=== PATIENT | female | born 1955 | race Caucasian/White ===

== ENCOUNTER → 2016-07-12 | Outpatient (CLI) | payer OTHER ==
[~2016-07-12] MED LIST: ACET-24 PO; ASPEC81 PO; BUPR-79 PO; CETI10TA84 PO; CLB200 PO; ESOM20CA PO; LEVO125T5 PO; LRT5 PO; MELO15TA3 PO; ONDA8TAB6 PO; RXC5 PO; SYNUNK; TRAM-10 PO
[2016-07-12 13:29] LABS: THYROID STIMULATING HORMONE 0.188 uIu/ml (0.300-4.500)
== END | disposition home or self-care (01) ==
LOC: C.LAB 11:25
PROVIDERS: ATTEND Family Medicine
DX: E03.9 Hypothyroidism, unspecified (principal)

== ENCOUNTER 2016-09-24 07:17 | Inpatient (IN) | payer OTHER ==
[2016-08-14 14:58] VITALS: BMI 37.0
--- NOTE | 2016-08-14 15:25 | PAT Medication Instructions ---
Service Date Aug 14, 2016. Current Home Medication List Cetirizine (Zyrtec), 10 MG PO QAM PRN for prn Esomeprazole Magnesium (Nexium), 20 MG PO QAM Levothyroxine Sodium (Levothyroxine Sodium), 1 TAB PO QAM Meloxicam (Mobic), 15 MG PO QAM Tramadol (Ultram), 50 MG PO Q4H PRN for Pain Medication Instructions For Your Scheduled Surgery - Check with surgeon for instructions: Meloxicam (Mobic), 15 MG PO QAM - Hold the following medications the morning of surgery: Cetirizine (Zyrtec), 10 MG PO QAM PRN for prn - Take the following medications the morning of surgery with a sip of water: Tramadol (Ultram), 50 MG PO Q4H PRN for Pain (okay to take up to 4 hours prior to surgery if needed) Levothyroxine Sodium (Levothyroxine Sodium), 1 TAB PO QAM Esomeprazole Magnesium (Nexium), 20 MG PO QAM - Take the following medications as scheduled the night before surgery: Tramadol (Ultram), 50 MG PO Q4H PRN for Pain (if needed) Cetirizine (Zyrtec), 10 MG PO QAM PRN for prn (if needed) If you have any questions please call us at [phone] or [phone] or [phone]
--- NOTE | 2016-08-14 15:48 | DIAGNOSTIC IMAGING REPORT ---
CHEST 2 VIEWS ROUTINE HISTORY: Preop. COMPARISON: Chest 08/02/2009. FINDINGS: The lungs are clear. Cardiac silhouette is normal in size. No pleural effusions. No pneumothorax. Prior cholecystectomy. Mild S-shaped scoliosis of the thoracolumbar spine. IMPRESSION: No acute process. Electronically signed by: Luis Stoner M.D. 08/14/2016 3:47 PM Dictated Date/Time: 08/14/2016 3:44 PM
[2016-08-14 15:52] LABS: BASO % 0.2 %; BASO ABS # 0.01 K/uL (0-0.2); COMPLETE YES; EOS % 5.6 %; HEMATOCRIT 40.1 % (37-47); LYMPH % 26.1 %; LYMPH ABS # 1.53 K/uL (1.2-3.4); MEAN CELL VOLUME 90.1 fL (80-100); MEAN CORPUSCULAR HEMOGLOBIN 30.1 pg (25-34); MEAN CORPUSCULAR HGB CONC 33.4 g/dl (32-36); MEAN PLATELET VOLUME 11.1 fL (7.4-10.4); MONO % 6.5 %; NEUT % 61.6 %; PLATELET COUNT 198 K/uL (130-400); RED BLOOD COUNT 4.45 M/uL (4.2-5.4); WHITE BLOOD COUNT 5.86 K/uL (4.8-10.8)
[2016-08-14 15:54] LABS: URINE APPEARANCE CLEAR (CLEAR); URINE BILIRUBIN NEG (NEG); URINE COLOR YELLOW; URINE NITRITE NEG (NEG); UROBILINOGEN NEG (NEG); ZZUR CULT IF INDIC CLEAN CATCH NO
[2016-08-14 15:55] LABS: MANUAL MICROSCOPIC REQUIRED? NO; REVIEW REQ? NO
[2016-08-14 15:57] LABS: PARTIAL THROMBOPLASTIN RATIO 1.1; PROTHROMBIN TIME (PATIENT) 10.6 SECONDS (9.0-12.0)
[2016-08-14 16:02] LABS: BUN/CREATININE RATIO 15.5 (10-20); CALCIUM 8.9 mg/dl (8.5-10.1); CREATININE 0.92 mg/dl (0.60-1.20); POTASSIUM 4.2 mmol/L (3.5-5.1)
[2016-09-17 11:41] VITALS: Ht 157.5 cm; Wt 92.1 kg
--- NOTE | 2016-09-21 17:53 | History and Physical ---
History & Physical Date Sep 21, 2016. Chief Complaint RIGHT KNEE PAIN History of Present Illness The patient is a 61 year old female with complaints of right knee pain for years , cant do adls. Life has become pretty miserable. She has tried nsaids, PT, bracing with no relief. Shes ready for Right Knee replacement. Past Medical/Surgical History Left knee replacement, ,cholecystectomy Allergies Coded Allergies: No Known Allergies (Unverified , 08/14/16) Home Medications Scheduled Esomeprazole Magnesium (Nexium), 20 MG PO QAM Levothyroxine Sodium (Levothyroxine Sodium), 1 TAB PO QAM Meloxicam (Mobic), 15 MG PO QAM Scheduled PRN Cetirizine (Zyrtec), 10 MG PO QAM PRN for prn Tramadol (Ultram), 50 MG PO Q4H PRN for Pain Physical Examination Skin: warm/dry, no rash Eyes: normal inspection, EOMI, sclerae normal ENT: normal ENT inspection, pharynx normal Head: normocephalic, atraumatic Neck: supple, no adenopathy, trachea midline Respiratory/Chest: lungs clear, normal breath sounds, no respiratory distress Cardiovascular: regular rate, rhythm, no edema, no murmur Abdomen / GI: normal bowel sounds, non tender Back: normal inspection Neurologic/Psych: no motor/sensory deficits, alert, normal reflexes, oriented x 3 Addiitonal Comments: painful rom right knee, crepitation right knee. Diagnosis DJD RIGHT KNEE Plan of Treatment RIGHT TKA, ADMIT TO [facility], HOME PT
[2016-09-24] VITALS (7 sets, daily range): BP systolic 101–138; BP diastolic 66–100; PULSE 57–88; TEMP 36.4–36.9; O2SAT 96–100
[~2016-09-24] VITALS: Ht 157.5 cm; Wt 92.1 kg
[~2016-09-24 07:17] MED LIST changes: -ACET-24 PO; +ACETAMINOPHEN 500 MG TAB PO SCH; -ASPEC81 PO; -BUPR-79 PO; +CEFAZOLIN 2000 MG/60 ML D5W 60 ML IV SCH; -CLB200 PO; +CeleBREX 200 MG CAP PO SCH; +DEXAMETHASONE 4 MG TAB PO SCH; +FAMOTIDINE 20 MG TAB PO SCH; +LACTATED RINGER'S 1000ML 1,000 ML IV SCH; +LACTATED RINGER'S 1000ML 500 ML IV ONE; +LEVO125T4 PO; -LEVO125T5 PO; -LRT5 PO; +METOCLOPRAMIDE HCL 10 MG TAB PO SCH; -ONDA8TAB6 PO; +ROPIVACAINE 5MG/ML 30 ML 150 MG, BUPIVACAINE/EPINEPHR 0.5% MPF 30 ML, KETOROLAC TROMETH... INFIL SCH; -RXC5 PO; -SYNUNK
[2016-09-24] MEDS ORDERED: MIDAZOLAM HCL 1 MG/ML 2ML VIAL ONE ×2 (07:35)
[2016-09-24] MEDS ORDERED: FENTANYL CITRATE INJ 50 MCG/1 ML 2 ML VIAL ONE (07:35)
[2016-09-24] MEDS ORDERED: BUPIVACAINE 0.25% 30 ML VIAL ONE (07:39)
[2016-09-24] MEDS ORDERED: BUPIVACAINE 0.5 % 5 MG/1 ML PF 10ML VIAL ONE (07:39)
--- NOTE | 2016-09-24 08:33 | History & Physical Bridge Note ---
H&P Re-Evaluation Bridge Note: I have examined the patient, reviewed the History & Physical and in the interval since the performance of the History & Physical I have noted the following changes of clinical significance: No changes noted
[2016-09-24] MEDS: TRANEXAMIC ACID INJ 1,000 MG in SODIUM CHLORIDE 0.9% 100ML 100 ML IV SCH ×2 (08:50→13:46)
[2016-09-24] MEDS ORDERED: ORTHO JOINT ANESTHETIC ONE (08:57)
[2016-09-24] MEDS ORDERED: POVIDONE-IODINE OP SOLN 30 ML BTL ONE (08:57)
[2016-09-24] MEDS ORDERED: BACITRACIN 50000 UNIT VIAL ONE (08:58)
[2016-09-24] MEDS ORDERED: HYDROmorphone INJ 2 MG/ML SYR/VIAL IV PRN (09:30)
[2016-09-24] MEDS ORDERED: ATROPINE SULFATE 0.1 MG/ML 5ML SYR IV PRN (09:30)
[2016-09-24] MEDS ORDERED: KETOROLAC TROMETHAMINE 30 MG/ML VIAL IV. PRN (09:30)
[2016-09-24] MEDS ORDERED: ONDANSETRON INJ 2 MG/ML 2 ML VIAL IV PRN ×2 (09:30→10:45)
[2016-09-24] MEDS ORDERED: PHENYLEPHRINE 100MCG/ML 5ML SYR IV PRN (09:30)
[2016-09-24] MEDS ORDERED: EpHEDrine SULFATE INJ 50 MG/ML AMP IV PRN (09:30)
[2016-09-24] MEDS ORDERED: PROPOFOL IV EMULSION 10 MG/ML 20 ML VIAL IV ONE ×2 (09:32→11:50)
[2016-09-24] MEDS ORDERED: BISACODYL 10 MG SUPP PR PRN (10:45)
[2016-09-24] MEDS ORDERED: ZOLPIDEM TARTRATE 5 MG TAB PO PRN (10:45)
[2016-09-24] MEDS ORDERED: MAGNESIUM HYDROXIDE SUSP 30 ML UDC PO PRN (10:45)
[2016-09-24] MEDS ORDERED: ALUMINUM/MAGNESIUM/SIMETH (MAALOX MAX) 30 ML UDC PO PRN (10:45)
--- NOTE | 2016-09-24 10:52 | OPERATIVE REPORT ---
DATE OF OPERATION: 09/24/2016 PREOPERATIVE DIAGNOSIS: Degenerative joint disease of the right knee. POSTOPERATIVE DIAGNOSIS: Same. PROCEDURES: Right total knee arthroplasty with the use of patient matched implants. SURGEON: Otf Gutierrez D.O. RELIABILITY ENGINEER: JERSEY Silverman certified. ANESTHESIA: Spinal. COMPLICATIONS: Zero. CONDITION: The patient tolerated the procedure well and transferred to recovery room in stable condition. IMPLANTS USED: [employer] II knee size 5 cemented femoral component, a size 3 tibial component, a size 11 PS insert and a size 32 All-Poly patella. INDICATIONS: Ms. Paz is a pleasant female who has unfortunately failed all forms of conservative measures. Therefore, she has decided to undergo elective surgical intervention. All risks and benefits of the surgery were discussed with the patient and the family in entirety. DESCRIPTION OF PROCEDURE: The patient was brought to the operating room and properly identified by myself, anesthesia, and staff. She was given a spinal anesthetic and placed on the operating table in the supine position. Tourniquets were applied to the right upper thigh. The leg was then prepped and draped in the usual sterile fashion. We made a standard midline approach over the patella and dissected down through the subcutaneous tissue to identify the capsule and performed a medial capsulotomy with the patella everted and the knee flexed. The patient-matched implant was then put onto the femur. The femur measured to be a size 5. This was then put into place. We made the appropriate cuts and then placed a retractor behind the proximal tibia to retract anteriorly. We then placed the patient-matched knee implant on the tibia. It measured to be a size 5. A size 5 guide was then put in place. We used the tibial punch then put the trial components into place. We had very good range of motion, excellent stability, and excellent patella tracking. We removed the trial components and irrigated the wound. We impacted the components in place using antibiotic cement. All excess cement was removed. We then irrigated the wound once more. We closed the capsule with 0 PDS suture, deep dermis with 2-0 Vicryl, and finally the skin with jono. A sterile dressing was applied. The patient was taken to the recovery room in stable condition. I attest to the content of the Intraoperative Record and any orders documented therein. Any exceptions are noted below. JACOB
--- NOTE | 2016-09-24 11:38 | Anesthesiology Progress Note ---
Anesthesia Post Op Note Date & Time Sep 24, 2016 at 11:37 Vital Signs Pain Intensity: 0 Vital Signs Past 12 Hours Date Time Temp Pulse Resp B/P (MAP) Pulse Ox O2 Delivery O2 Flow Rate FiO2 09/24/16 11:25 67 18 96/62 99 Mask 10 09/24/16 11:15 76 18 103/65 100 Mask 10 09/24/16 11:05 36.6 79 18 100/58 98 Mask 10 09/24/16 07:42 36.6 88 18 138/100 97 Room Air Notes Mental Status: alert / awake / arousable, participated in evaluation Pt Amnestic to Procedure: Yes Nausea / Vomiting: adequately controlled Pain: adequately controlled Airway Patency, RR, SpO2: stable & adequate BP & HR: stable & adequate Hydration State: stable & adequate Anesthetic Complications: no major complications apparent
[2016-09-24] MEDS ORDERED: PHENYLEPHRINE 100MCG/ML 5ML SYR ONE (11:50)
[2016-09-24] MEDS: SODIUM CHLORIDE 0.9% 1000ML 1,000 ML IV SCH ×2 (12:30→21:17)
--- NOTE | 2016-09-24 13:09 | [facility] Post Operative Brief Note ---
Immediate Operative Summary Operative Date Sep 24, 2016. Pre-Operative Diagnosis Right Knee Degenerative Joint Disease Post-Operative Diagnosis Right Knee Degenerative Joint Disease Procedure(s) Performed Right Total Knee Arthroplasty, Cemented Surgeon Dr. Gutierrez 911 Dispatcher Surgeon(s) Alisia Gongora PA-C Estimated Blood Loss 20 mL Findings as above Specimens A: Right Knee Bone and Tissue Complication(s) None Disposition Recovery Room / PACU
[2016-09-24] MEDS: OXYCODONE HCL IR 5 MG TAB (IMMEDIATE RELEASE) PO PRN (18:36)
[2016-09-24] MEDS: CEFAZOLIN IV 2,000 MG in DEXTROSE 5% 50ML 50 ML IV SCH (18:37)
[2016-09-24] MEDS: ASPIRIN 81 MG ECTAB PO SCH (21:17)
[2016-09-24] MEDS: CeleBREX 200 MG CAP PO SCH (21:17)
[2016-09-24] MEDS: ACETAMINOPHEN 500 MG TAB PO SCH (21:17)
[2016-09-24] MEDS: DOCUSATE SODIUM 100 MG CAP PO SCH (21:17)
[2016-09-25] MEDS: OXYCODONE HCL IR 5 MG TAB (IMMEDIATE RELEASE) PO PRN ×2 (01:26→09:24)
[2016-09-25] MEDS: CEFAZOLIN IV 2,000 MG in DEXTROSE 5% 50ML 50 ML IV SCH (01:26)
[2016-09-25 03:20] VITALS: BP 98/59; PULSE 58; TEMP 36.6; O2SAT 97
[2016-09-25] MEDS: SODIUM CHLORIDE 0.9% 1000ML 1,000 ML IV SCH (05:38)
[2016-09-25] MEDS: ACETAMINOPHEN 500 MG TAB PO SCH (05:38)
[2016-09-25 05:59] LABS: HEMATOCRIT 33.6 % (37-47); MEAN CELL VOLUME 89.8 fL (80-100); MEAN CORPUSCULAR HEMOGLOBIN 30.2 pg (25-34); MEAN CORPUSCULAR HGB CONC 33.6 g/dl (32-36); MEAN PLATELET VOLUME 11.4 fL (7.4-10.4); PLATELET COUNT 172 K/uL (130-400); RED BLOOD COUNT 3.74 M/uL (4.2-5.4); WHITE BLOOD COUNT 14.53 K/uL (4.8-10.8)
[2016-09-25] MEDS ORDERED: DEXAMETHASONE INJ 10 MG in SYRINGE 0 ML IV ONE (07:30)
[2016-09-25] MEDS ORDERED: RXC5 PO (07:59)
[2016-09-25] MEDS ORDERED: CLB200 PO (07:59)
[2016-09-25] MEDS ORDERED: ACET-24 PO (07:59)
[2016-09-25] MEDS ORDERED: ASPEC81 PO (07:59)
[2016-09-25] MEDS ORDERED: ONDA8TAB6 PO (07:59)
--- NOTE | 2016-09-25 08:00 | Discharge Instructions ---
Discharge Instructions Date of Service Sep 25, 2016. Admission Reason for Admission: Right Knee Osteoarthritis Discharge Discharge Diagnosis / Problem: SP RIGHT TKA Discharge Goals Goal(s): Decrease discomfort, Improve function, Increase independence Activity Recommendations Activity Limitations: per Instructions/Follow-up section ACTIVITY RECOMMENDATIONS: SELF CARE INSTRUCTIONS AFTER TOTAL KNEE REPLACEMENT A. You may need to continue a physical therapy program after discharge from the hospital. There are several options available to you. Your doctor will assist you in selecting the best one for you. 1. An out-patient facility 2 to 3 times a week for therapy or home therapy. 2. Continue working on all exercises taught to you in the hospital. Your goals should be to increase bending of your knee to 90 degrees and beyond and to fully straighten your knee. B. You may progress at your own pace from walking with a walker or crutches to a cane; then to no assistive devices. C. Make walking a part of your daily routine. Be up as much as comfortable with rest periods throughout the day. Rest with leg elevation is very important. Use the ice wrap frequently for the first 3-4 weeks. D. There are no restrictions on activities. You may ride in a car, shop, participate in primary care physician and all social activities. E. Wear the long elastic stockings (CURRY hose) 20 hours a day for 2 weeks after surgery. They can be removed several times a day for laundering and for a bath. F. You may shower, no tub baths until cleared by your doctor. SPECIAL CARE INSTRUCTIONS: VERY IMPORTANT TO READ AND REVIEW A. There are a few signs you need to watch for after you are home. Call [facility] if you notice any of the followin. Increased severe knee pain. Some pain is expected especially when you exercise. 2. Increased swelling in your leg or knee; pain or swelling of the calf muscle in either lower leg. 3. Any fluid drainage from the incision. 4. Shortness of breath or chest pain. B. Please call [facility] at if you have any concerns or questions about your operation or recovery. The doctor or his nurse will return your call promptly. C. You must take antibiotics before dental work, bladder, bowel or other surgery. Your doctor will provide you with a permanent care to carry describing this precaution. IMPORTANT: * REMEMBER TO TAKE ASPIRIN, 81 MG, TWICE DAILY FOR 4 WEEKS UNLESS OTHERWISE DIRECTED. THIS IS YOUR BLOOD THINNER. * HIGH RISK PATIENTS MAY BE PRESCRIBED A STRONGER BLOOD THINNER. THIS WILL BE PROVIDED AT DISCHARGE. * CALL IF INCREASED PAIN, REDNESS, DRAINAGE OR FEVER GREATER THAT 101. * WEAR CURRY HOSE 20 HOURS PER DAY FOR 2 WEEKS. DERMABOND Prineo- This is a mesh tape dressing that is covered with glue. It should remain in place until the incision is properly healed, usually 10-14 days. This dressing is designed to naturally slough off. You may trim the excess mesh tape as it peels off. Incision may be briefly wet in a shower. Dry immediately by blotting with a clean, dry towel. Do not bath or swim until instructed by your doctor. Do not scratch, rub, or pick at the dressing. Do not apply any topical ointments or lotions until dressing is completely removed and/or instructed by your doctor. There may be a small piece of suture material at one end of your incision. Do not pull or trim this. If it is bothersome or catching on clothing, you may cover it with a band-aid. FOLLOW UP VISIT: If appointment is not already scheduled: Please call [facility] to make a follow-up appointment for 2 weeks after your surgery at . . Current Hospital Diet Patient's current hospital diet: Regular Diet Discharge Diet Recommended Diet: Regular Diet Procedures Procedures Performed: Right Total Knee Arthroplasty, Cemented Pending Studies Studies pending at discharge: no Medical Emergencies . Who to Call and When: Medical Emergencies: If at any time you feel your situation is an emergency, please call 911 immediately. . Non-Emergent Contact Non-Emergency issues call your: Surgeon . "Provider Documentation" section prepared by Alisia Gongora. . VTE Core Measure Inpt VTE Proph given/why not?: Other Anticoagulation, T.E.D. Stockings, SCD's
[2016-09-25] MEDS: ASPIRIN 81 MG ECTAB PO SCH (08:25)
[2016-09-25] MEDS: DOCUSATE SODIUM 100 MG CAP PO SCH (08:25)
[2016-09-25] MEDS: CeleBREX 200 MG CAP PO SCH (08:26)
[2016-09-25 08:28] VITALS: BP 120/70; PULSE 58; TEMP 36.6; O2SAT 100
[2016-09-25 08:33] VITALS: O2SAT 100
[2016-09-25] MEDS ORDERED: PANTOprazole SOD 40 MG TAB PO SCH (09:00)
--- NOTE | 2016-09-25 10:02 | DISCHARGE SUMMARY ---
DATE OF DISCHARGE: 09/25/2016. DISCHARGE DIAGNOSIS: Degenerative joint disease, right knee. SECONDARY DIAGNOSIS: None. CONSULTS: None. COMPLICATIONS: None. PROCEDURE: The patient underwent a right total knee arthroplasty by Dr. Gutierrez 09/24/2016. BRIEF HISTORY: Please see previously dictated history and physical. The patient was admitted on the above day for the above procedure. Procedure went without complication. Postop day 1, the patient was doing well with no complaints. Vital signs were stable. She was afebrile. Dressing was clean, dry and intact. She had no Hemovac drain. Hemoglobin was stable at 11.3. All other labs were within normal limits. Dressing was clean, dry and intact. She was neurovascularly intact. Calves were soft and nontender. The patient continued to progress with physical therapy. She was discharged home later that day in stable condition. For further review please see the chart. Lab, x-ray data and discharge instructions as per chart.
[2016-09-25 11:45] VITALS: BP 124/80; PULSE 63; TEMP 36.9; O2SAT 98
--- NOTE | 2016-10-29 19:37 | [facility] Operative Report ---
Operative Report Operative Date September 24, 2016. Pre-Operative Diagnosis Right Knee Degenerative Joint Disease Post-Operative Diagnosis Right Knee Degenerative Joint Disease Procedure(s) Performed Right Total Knee Arthroplasty, Cemented Surgeon Dr. Gutierrez Nib Inspector Surgeon(s) Alisia Gongora PA-C Estimated Blood Loss 20 mL Findings ABOVE Specimens A: Right Knee Bone and Tissue Complication(s) None Disposition Recovery Room / PACU Description of Procedure this is an amendment to the operative report for 2016 Due to the complex nature of the procedure, the entire surgery was performed with the operational assistance of [the (PAUL)]. The medical services assistant was under direct supervision, was involved in the actual performance of all aspects of the surgical procedure including hemostasis, tissue retraction and incision, instrument management, patient positioning, and wound closure. I attest to the content of the Intraoperative Record and any orders documented therein. Any exceptions are noted below.
== END 2016-09-25 13:09 | disposition home or self-care (01) | DRG 470 ==
LOC: C.ACU 07:17 → C.3E 07:50 → ENRESERV 11:29
PROVIDERS: ADMIT Orthopaedic Surgery; ATTEND Orthopaedic Surgery
PROC: 0SRC0J9 Replacement of Right Knee Joint with Synthetic Substitute, Cemented, Open Approach (ICD-10-PCS; principal; 2016-09-24 09:45)
DX: M17.11 Unilateral primary osteoarthritis, right knee (principal); Z96.652 Presence of left artificial knee joint